=== PATIENT | female | born 1975 | race Caucasian/White ===

== ENCOUNTER 2021-10-26 21:37 | Emergency (ER) | payer OTHER, SELFPAY ==
[2021-10-26] VITALS (9 sets, daily range): BP systolic 169–179; BP diastolic 88–97; PULSE 78–82; RESP 14–18; TEMP 36.7; O2SAT 97–100; BMI 46.6
--- NOTE | 2021-10-26 21:55 | DI.RAD.S_ITS ---
PROCEDURE: XR CHEST 1V INDICATIONS: chest pain TECHNIQUE: One view of the chest was acquired. COMPARISON: None. FINDINGS: Surgical changes and devices: None. Lungs and pleura: There is mild pulmonary vascular prominence which may reflect vascular crowding or mild edema. No focal consolidation. No pleural effusions or pneumothorax. Mediastinum: Mediastinal contours appear prominent likely due to low lung volumes and portable technique. Heart size is borderline enlarged. Bones and chest wall: No suspicious bony lesions. Overlying soft tissues appear unremarkable. IMPRESSION: 1. Pulmonary vascular prominence compatible with vascular crowding or mild edema. Dictated by: Tyler Joyner M.D. on 10/26/2021 at 23:25 Approved by: Tyler Joyner M.D. on 10/26/2021 at 23:26
--- NOTE | 2021-10-26 21:57 | DI.RAD.S_ITS ---
PROCEDURE: XR SHOULDER LT MIN 2V INDICATIONS: Left arm pain TECHNIQUE: 3 views of the shoulder were acquired. COMPARISON: None. FINDINGS: Bones: No fractures or dislocations. There is minimal acromioclavicular joint degeneration. No suspicious bony lesions. Visualized ribs appear intact. Soft tissues: No suspicious soft tissue calcifications. IMPRESSION: 1. No fracture or dislocation. Dictated by: Tyler Joyner M.D. on 10/26/2021 at 23:26 Approved by: Tyler Joyner M.D. on 10/26/2021 at 23:27
--- NOTE | 2021-10-26 22:14 | PC.NURSE ---
In addition to 8/10 pain on right arm, pt also states she has been having headaches and had dizziness upon arrival to ED
[2021-10-26 22:22] LABS: Add Manual Diff / Slide Review NO; Basophils Absolute Auto 100 /uL (0-100); Basophils Percent Auto 0.8 % (0-2); Eosinophils Absolute Auto 100 /uL (0-450); Hematocrit 34.4 % (36-46); Hemoglobin 11.7 g/dL (12.0-16.0); Lymphocytes Absolute Auto 3600 /uL (1100-4500); Lymphocytes Percent Auto 35.8 % (25-40); Mean Corpuscular HGB Conc 34.1 % (30-36); Mean Corpuscular Hemoglobin 26.5 PG (26-34); Mean Corpuscular Volume 77.8 fL (80-100); Monocytes Absolute Auto 600 /uL (0-900); Neutrophils Absolute Auto 5600 /uL (1500-7000); Neutrophils Percent Auto 56.4 % (50-75); Platelet Count 334 X10^3/uL (150-400); Red Blood Cell Count 4.42 X10^6/uL (4.0-5.2); Red Cell Distribution Width 14.1 % (11.6-14.8); White Blood Cell Count 9.9 X10^3/uL (4.5-11.0)
[2021-10-26 22:33] LABS: Alanine Aminotransferase 22 IU/L (<35); Albumin 4.8 g/dL (3.5-5.0); Albumin Globulin Ratio 1.2 (1.0-2.8); Alkaline Phosphatase 114 U/L (38-126); Aspartate Aminotransferase 27 IU/L (14-36); BUN Creatinine Ratio 20.3 (6-22); Bilirubin Total 0.4 mg/dL (0.2-1.3); Blood Urea Nitrogen 13 mg/dL (7-17); Calcium 9.2 mg/dL (8.4-10.2); Carbon Dioxide 28 mmol/L (22-32); Chloride 101 mmol/L (98-107); Creatine Kinase 178 U/L (30-135); Estimated Glomerular Filt Rate > 60.0 mL/min (>60); Glucose 92 mg/dL (70-100); HEMOLYSIS < 15 (0-50); Lipase 112 U/L (23-300); Magnesium 1.9 mg/dL (1.6-2.3); Potassium 3.7 mmol/L (3.4-5.1); Sodium 139 mmol/L (137-145); Total Protein 8.8 g/dL (6.3-8.2)
[2021-10-26 22:44] LABS: Troponin I < 0.012 ng/mL (0.01-0.034)
[2021-10-26 22:47] LABS: CKMB % Relative Index 0.4 % (1.5-5.0); Creatine Kinase MB 0.78 ng/mL (<2.37)
--- NOTE | 2021-10-26 23:37 | ED_ITS ---
HPI - Extremity Injury (Upper) General Chief Complaint: Extremity Injury, Upper Stated Complaint: lt shoulder pain Time Seen by Provider: 10/26/21 23:19 Source: patient Mode of arrival: Ambulatory History of Present Illness HPI narrative: The patient complains of pain in left anterior shoulder, shooting down the left deltoid region with motion of the shoulder. Pain started last night. She is left-hand dominant. She does desk work. She cannot recall any distress, any type of injury to the left shoulder. She has no numbness in the left forearm or left hand. She has no restriction of motion left arm other than the shoulder. The right arm has no similar discomfort. She has no associated neck discomfort. She has no associated chest pain, palpitations, dizziness, dyspnea or weakness. Related Data Home Medications Medication Instructions Recorded Confirmed CA/FE/FOLIC ACID/VIT A/VIT B 1 tab PO Q DAY #0 05/28/12 (# VITAMIN) acetaminophen 500 mg tablet 500 mg PO Q6H PRN #0 05/28/12 (Tylenol Extra Strength) Previous Rx's Medication Instructions Recorded ibuprofen 600 mg tablet 600 mg PO QID #30 08/13/12 norethindrone (contraceptive) 0.35 0.35 mg PO QDAY #90 10/15/12 mg tablet (Ortho Micronor) Allergies Allergy/AdvReac Type Severity Reaction Status Date / Time CODEINE Allergy Mild HEADACHE Uncoded 11/01/17 12:22 OXYCODONE Allergy Mild Uncoded 11/01/17 12:22 PENICILLIN Allergy Mild Uncoded 11/01/17 12:22 Review of Systems Constitutional Constitutional: Denies body ache(s), Denies fatigue, Denies fever(s) and Denies headache(s) ENT Ears, Nose, Mouth, and Throat: Denies vertigo, Denies dizziness, Denies headache(s), Denies sinus pressure and Denies sore throat Cardiovascular Cardiovascular: Denies chest pain, Denies syncope, Denies rapid heart rate, Denies pedal edema and Denies dyspnea Respiratory Respiratory: Denies chest congestion, Denies cough and Denies dyspnea Gastrointestinal Gastrointestinal: Denies abdominal pain, Denies heartburn and Denies nausea Musculoskeletal Musculoskeletal: Reports as per HPI Integumentary/Breasts Skin/Breast: Denies new lesions and Denies rash Neurologic Neurologic: Denies vertigo, Denies dizziness, Denies syncope, Denies headache(s) and Denies localized weakness Psychiatric Psychiatric: Denies anxiety Endocrine Endocrine: Denies fatigue Hematologic/Lymphatic On Anticoagulants: No Patient History Medical History (Updated 10/27/21 @ 03:58 by Janusz Chicas MD) No chronic diseases present Social History Smoking Status: Never smoker Smoking Status: Never smoker alcohol intake frequency: 0-2 drinks per day Substance Use Type: does not use Exam Initial Vital Signs Initial Vital Signs: Vital Signs Pulse Rate 82 10/26/21 21:46 Pulse Oximetry 99 10/26/21 21:46 Const General: cooperative, healthy appearing, comfortable, well developed and well groomed HENOR Head: normal to inspection, normocephalic and atraumatic Eyes General: appearance normal, both eyes and all related structures Neck Neck: full ROM and No tender Chest Chest: normal inspection of the chest and tenderness (Left upper outer chest.) Resp Auscultation: clear to auscultation bilaterally Cardio Rate: regular rate Rhythm: regular rhythm Heart Sounds: S1 normal, S2 normal and no murmurs GI Palpation: No tender Back/Spine/Pelvis Other: No thoracic back pain. Skin General: no rashes or lesions noted Neuro General: patient alert, patient awake, patient oriented x3 and no focal motor deficits Extrem Other: Tenderness to the left anterior chest without deformity or laxity. Decreased internal rotation. No deltoid discomfort or laxity. Left arm is otherwise atraumatic. Pain is exacerbated by left arm motion. Left radial pulse is normal. Course Course Course Narrative: Evaluation is consistent with a left shoulder strain. There is no suggestive cardiac etiology of the left shoulder pain. She is discharged home on OTC analgesics. She should follow-up with her doctor and consider physical therapy if not improving. Orders Ordered: ED Orders 10/26/21 21:55 XR chest 1V Stat EKG-12 Lead Stat 10/26/21 21:57 XR shoulder LT min 2V Stat 10/26/21 22:10 Complete Blood Count AUTO DIFF Stat Comprehensive Metabolic Panel Stat Lipase Stat Magnesium Stat Troponin & CK Cardiac Panel Stat Discontinued Medications Ketorolac Tromethamine (Ketorolac 30 Mg/Ml Vial) 30 mg IV NOW ONE Stop: 10/26/21 23:42 Last Admin: 10/26/21 23:49 Dose: 30 mg Documented by: MELODY Vital Signs Vital signs: Vital Signs - 8 hr 10/26/21 21:46 10/26/21 21:47 10/26/21 21:51 Temperature 98.1 F Pulse Rate 82 80 82 Respiratory Rate 18 Blood Pressure 169/89 H 169/89 H Pulse Oximetry 99 99 99 10/26/21 22:08 10/26/21 22:30 10/26/21 23:00 Temperature Pulse Rate 78 80 80 Respiratory Rate 14 Blood Pressure Pulse Oximetry 97 100 10/26/21 23:07 10/26/21 23:30 10/26/21 23:31 Temperature Pulse Rate 82 82 81 Respiratory Rate 16 18 Blood Pressure 170/88 H 179/97 H Pulse Oximetry 97 97 97 10/27/21 00:00 10/27/21 00:01 10/27/21 00:03 Temperature Pulse Rate 81 82 80 Respiratory Rate 20 22 20 Blood Pressure 172/80 H Pulse Oximetry 99 99 99 MDM - Extremity Injury (Upper) Lab Data Result diagrams: 10/26/21 22:10 10/26/21 22:10 Labs: Lab Results 10/26/21 10/26/21 Range/Units 22:10 22:10 WBC 9.9 (4.5-11.0) X10^3/uL RBC 4.42 (4.0-5.2) X10^6/uL Hgb 11.7 L (12.0-16.0) g/dL Hct 34.4 L (36-46) % MCV 77.8 L (80-100) fL MCH 26.5 (26-34) PG MCHC 34.1 (30-36) % RDW 14.1 (11.6-14.8) % Plt Count 334 (150-400) X10^3/uL Neut % (Auto) 56.4 (50-75) % Lymph % (Auto) 35.8 (25-40) % [place] % (Auto) 6.0 (3-14) % Eos % (Auto) 1.0 L (2-4) % Baso % (Auto) 0.8 (0-2) % Neut # (Auto) 5600 (0352-1126) /uL Lymph # (Auto) 3600 (8988-5246) /uL [place] # (Auto) 600 (0-900) /uL Eos # (Auto) 100 (0-450) /uL Baso # (Auto) 100 (0-100) /uL Sodium 139 (137-145) mmol/L Potassium 3.7 (3.4-5.1) mmol/L Chloride 101 (98-107) mmol/L Carbon Dioxide 28 (22-32) mmol/L BUN 13 (7-17) mg/dL Creatinine 0.64 (0.52-1.04) mg/dL Estimated GFR > 60.0 (>60) mL/min BUN/Creatinine Ratio 20.3 (6-22) Glucose 92 (70-100) mg/dL Calcium 9.2 (8.4-10.2) mg/dL Magnesium 1.9 (1.6-2.3) mg/dL Total Bilirubin 0.4 (0.2-1.3) mg/dL AST 27 (14-36) IU/L ALT 22 (<35) IU/L Alkaline Phosphatase 114 (38-126) U/L Total Creatine Kinase 178 H (30-135) U/L CK-MB (CK-2) 0.78 (<2.37) ng/mL CK-MB (CK-2) Rel Index 0.4 L (1.5-5.0) % Troponin I < 0.012 (0.01-0.034) ng/mL Total Protein 8.8 H (6.3-8.2) g/dL Albumin 4.8 (3.5-5.0) g/dL Globulin 4.0 (1.7-4.1) g/dL Albumin/Globulin Ratio 1.2 (1.0-2.8) Lipase 112 (23-300) U/L Point of Care Testing Test Results Negative Imaging Data Left shoulder x-ray: Radiologist's Impression: Normal. No acute findings. Chest x-ray: Radiologist's Impression: ?Pulmonary vascular prominence compatible with vascular crowding or mild edema. ECG Data Attestation: I personally reviewed and interpreted this ECG as follows: (Normal sinus rhythm rate 75 beats per minute. Normal intervals. No ectopy. No acute ST T wave changes.) Discharge Plan Departure Patient Disposition: Home Clinical Impression: Left shoulder strain Activity Restrictions/Additional Instructions: The left shoulder x-ray is normal. Your cardiac evaluation is normal. The evaluation shows suggest strain to the soft tissue structures around the left shoulder. Advil 3 tablets every 6 hours for pain. Limit the use of your left arm. If her arm is not improved within 2-3 weeks, follow-up with your doctor for physical therapy. If symptoms persist, you may require an MRI to evaluate for a rotator cuff injury. Return here as needed. Prescriptions: No Action CA/FE/FOLIC ACID/VIT A/VIT B (# VITAMIN) 1 tab PO Q DAY Qty: 0 0RF acetaminophen [Tylenol Extra Strength] 500 MG tablet 500 mg PO Q6H PRNQty: 0 0RF ibuprofen 600 MG tablet 600 mg PO QID Qty: 30 1RF norethindrone (contraceptive) [Ortho Micronor] 0.35 MG tablet 0.35 mg PO QDAY Qty: 90 3RF
[2021-10-26] MEDS: KETOROLAC 30 MG/ML VIAL IV (23:49)
[2021-10-27] VITALS: PULSE 81; RESP 20; O2SAT 99
[2021-10-27 00:01] VITALS: PULSE 82; RESP 22; O2SAT 99
[2021-10-27 00:03] VITALS: BP 172/80; PULSE 80; RESP 20; O2SAT 99
== END 2021-10-27 00:40 | disposition home or self-care (01) ==
PROVIDERS: Emergency Provider Emergency Medicine
DX: S46.912A Strain of unspecified muscle, fascia and tendon at shoulder and upper arm level, left arm, initial encounter (principal); R07.9 Chest pain, unspecified; X58.XXXA Exposure to other specified factors, initial encounter
CPT/HCPCS: 36415; 71045; 73030; 80053; 81025; 82550; 82553; 83690; 83735; 84484; 85025; 93005; 93010; 96374; 99284; J1885

== ENCOUNTER → 2023-07-18 16:17 | Outpatient (CLI) | payer OTHER, SELFPAY ==
[2023-07-18 17:23] LABS: Add Manual Diff / Slide Review NO; Basophils Absolute Auto 0 /uL (0-100); Basophils Percent Auto 0.2 % (0-2); Eosinophils Absolute Auto 200 /uL (0-450); Eosinophils Percent Auto 2.1 % (2-4); Hematocrit 31.9 % (36-46); Hemoglobin 10.4 g/dL (12.0-16.0); Lymphocytes Absolute Auto 3400 /uL (1100-4500); Lymphocytes Percent Auto 37.2 % (25-40); Mean Corpuscular HGB Conc 32.8 % (30-36); Mean Corpuscular Hemoglobin 22.9 PG (26-34); Mean Corpuscular Volume 69.9 fL (80-100); Monocytes Absolute Auto 600 /uL (0-900); Monocytes Percent Auto 6.5 % (3-14); Neutrophils Absolute Auto 4900 /uL (1500-7000); Platelet Count 452 X10^3/uL (150-400); Red Blood Cell Count 4.56 X10^6/uL (4.0-5.2); Red Cell Distribution Width 16.7 % (11.6-14.8)
[2023-07-18 17:26] LABS: HEMOLYSIS < 15 (0-50)
[2023-07-18 17:28] LABS: Iron 35 ug/dL (37-170)
[2023-07-18 17:39] LABS: Anisocytosis 1+; Microcytosis 1+; Polychromasia 1+
[2023-07-18 18:54] LABS: Ferritin 6 ng/mL (6-137)
[2023-07-18 19:55] LABS: Percent Iron Saturation 8 % (15-50); Total Iron Binding Capacity 435 ug/dL (265-497); Transferrin 377 mg/dL (206-381)
== END ==
PROVIDERS: Referring Provider Nurse Practitioner Family; Visit Provider Nurse Practitioner Family
DX: D64.9 Anemia, unspecified (principal)
CPT/HCPCS: 36415; 82728; 83540; 83550; 85025

== ENCOUNTER 2024-05-22 06:57 | Emergency (ER) | payer OTHER, SELFPAY ==
[2024-05-22 07:20] VITALS: BP 210/114; PULSE 81; RESP 16; TEMP 36.6; O2SAT 97; BMI 46.2
--- NOTE | 2024-05-22 07:46 | ED.HA ---
HPI - Headache General Chief Complaint: Headache Stated Complaint: headache Time Seen by Provider: 05/22/24 07:06 Source: patient, RN notes reviewed and old records reviewed Mode of arrival: Ambulatory Limitations: no limitations History of Present Illness HPI Narrative: 48-year-old female with history of migraines and cluster headaches. Patient reports headaches do sometimes resolve but for the past 22 days. She has been referred to headache clinic. patient has been taking sumatriptan for the last 18 days and has since run out. States was taking it fairly regularly, she has been following with the primary care who has been consulting with Neurology. They did recently give her an additional medication but did not feel comfortable increasing that amount until she sees the headache clinic. Headache feels like her typical pass headaches with pressure behind her right eye. She states no fevers or chills, no vision changes, no numbness, tingling or weakness no other neurologic changes. Denies any nausea or vomiting. No fevers or chills. No recent respiratory infections. No chest pain or shortness of breath. Denies any diarrhea, constipation or urinary symptoms. States she does sometimes get migraines with the RN nausea but has not been having that. Patient has had imaging of her head in the past and workup for her headaches. Patient is supposed to be on antihypertensives but had reaction supposed to be starting a new medication today. She was picking up her new prescription today. She has had Toradol in the past with minimal improvement, she states Reglan has been helpful but she does get a little bit of a dystonic reaction. She states she has had p.o. Reglan which has not had similar symptoms in the past. She states narcotics she does not tolerate well. Patient requests if she can have 1 dose of sumatriptan she normally has 100 mg. She works with her physician and states she will be seeing them today. Related Data Home Medications Medication Instructions Recorded Confirmed CA/FE/FOLIC ACID/VIT A/VIT B 1 tab PO Q DAY ##0 05/28/12 (# VITAMIN) acetaminophen 500 mg tablet 500 mg PO Q6H PRN ##0 05/28/12 (Tylenol Extra Strength) Previous Rx's Medication Instructions Recorded ibuprofen 600 mg tablet 600 mg PO QID ##30 08/13/12 norethindrone (contraceptive) 0.35 0.35 mg PO QDAY ##90 03/25/13 mg tablet (Ortho Micronor) metoclopramide HCl 10 mg tablet 10 mg PO Q6H PRN nausea and 05/22/24 (Reglan) vomiting #10 tabs Allergies Allergy/AdvReac Type Severity Reaction Status Date / Time morphine Allergy Anaphylaxis Verified 05/22/24 07:23 CODEINE Allergy Mild HEADACHE Uncoded 05/22/24 07:23 OXYCODONE Allergy Mild Uncoded 05/22/24 07:23 PENICILLIN Allergy Mild Uncoded 05/22/24 07:23 Review of Systems Review of Systems ROS Unobtainable: All systems reviewed & are unremarkable except as noted in HPI and below Patient History Medical History No chronic diseases present Social History Smoking Status: Never smoker Smoking Status: Never smoker alcohol intake frequency: 0-2 drinks per day Substance Use Type: does not use Exam Narrative Exam Narrative: GENERAL: Alert and oriented x three, well-appearing female in mild distress HEENT: Head normocephalic, atraumatic, EOMI, pupils reactive, face symmetric, moist mucous membranes, no facial droop NECK: Supple, full range of motion CARDIOVASCULAR: Regular rate and rhythm without murmurs, rubs or gallops. RESPIRATORY: Breath sounds equal bilaterally, no wheezes rales or rhonchi. ABDOMEN: Soft, nontender. Normoactive bowel sounds all 4 quadrants. No guarding or rebound, rigidity, no mass : No CVA tenderness EXTREMITIES: Normal range of motion, no clubbing or edema. Neurovascularly intact NEUROLOGICAL: Cranial nerves II through XII grossly intact. Moving all extremities. Normal gait. SKIN: Warm, dry, no petechiae, no rashes or lesions. Initial Vital Signs Initial Vital Signs: Vital Signs Temperature 97.8 F 05/22/24 07:20 Pulse Rate 81 05/22/24 07:20 Respiratory Rate 16 05/22/24 07:20 Blood Pressure 210/114 H 05/22/24 07:20 Pulse Oximetry 97 05/22/24 07:20 Oxygen Delivery Method Room Air 05/22/24 07:20 Course Orders Ordered: Discontinued Medications Sumatriptan Succinate (Sumatriptan 25 Mg Tablet) 100 mg PO NOW ONE Stop: 05/22/24 08:58 Last Admin: 05/22/24 09:09 Dose: 100 mg Documented By: [facility] Vital Signs Vital signs: Vital Signs - 8 hr 05/22/24 07:20 05/22/24 07:57 05/22/24 07:58 Temperature 97.8 F Pulse Rate 81 76 75 Respiratory Rate 16 Blood Pressure 210/114 H Pulse Oximetry 97 100 98 Oxygen Delivery Method Room Air 05/22/24 07:58 05/22/24 08:00 05/22/24 08:00 Temperature Pulse Rate 74 Respiratory Rate Blood Pressure 174/94 H 169/91 H Pulse Oximetry 98 Oxygen Delivery Method MDM - Headache MDM Narrative Medical decision making narrative: Patient was hypertensive initially upon arrival, improving without intervention here in the department. Patient describes persistent headaches has had head CT in the past and evaluation is following regularly with her physician who has also been working with Neurology and has been referred to the headache clinic. No other red flag symptoms today. Patient given dose of sumatriptan here in the department. Patient notes she does not tolerate IV regularly unwell with dystonic reaction but has had oral Reglan seemed to tolerate it and found it helpful for headaches in the past. We will give a short term prescription for this medication. Discussed return precautions all questions answered. Discharge Plan Departure Patient Disposition: Home Clinical Impression: Headache Activity Restrictions/Additional Instructions: I hope you are follow up with headache clinic is helpful. Prescription for Reglan is included, you can take 1 tablet every 6 hours as needed. Prescription was sent to [facility]. Please return for rapidly worsening headaches, any sudden vision changes, new numbness, tingling or weakness, difficulty with movement, persistent vomiting, new chest pain or shortness of breath or other new or concerning changes. Prescriptions: New metoclopramide HCl [Reglan] 10 mg tablet 10 mg PO Q6H PRN (Reason: nausea and vomiting) Qty: 10 0RF No Action CA/FE/FOLIC ACID/VIT A/VIT B (# VITAMIN) 1 tab PO Q DAY Qty: 0 acetaminophen [Tylenol Extra Strength] 500 MG tablet 500 mg PO Q6H PRNQty: 0 ibuprofen 600 MG tablet 600 mg PO QID Qty: 30 1RF norethindrone (contraceptive) [Ortho Micronor] 0.35 MG tablet 0.35 mg PO QDAY Qty: 90 3RF Stand Alone Forms: Patient Portal/API/Survey
[2024-05-22 07:57] VITALS: PULSE 76; O2SAT 100
[2024-05-22 07:58] VITALS: BP 174/94; PULSE 75; O2SAT 98
[2024-05-22 08:00] VITALS: BP 169/91; PULSE 74; O2SAT 98
[2024-05-22 08:30] VITALS: BP 169/95; PULSE 73; O2SAT 99
[2024-05-22 09:00] VITALS: BP 170/98; PULSE 75; O2SAT 98
[2024-05-22] MEDS: SUMAtriptan 25 MG TABLET 100 MG PO (09:09)
== END 2024-05-22 09:16 | disposition home or self-care (01) ==
PROVIDERS: Emergency Provider Emergency Medicine
DX: R51.9 Headache, unspecified (principal)
CPT/HCPCS: 99283

== ENCOUNTER 2025-04-08 19:14 | Emergency (ER) | payer OTHER, SELFPAY ==
[2025-04-08 19:42] VITALS: BP 183/91; PULSE 84; RESP 16; TEMP 36.4; O2SAT 97; BMI 46.6
== END 2025-04-08 21:13 | disposition left against medical advice (07) ==
PROVIDERS: Emergency Provider Emergency Medicine
DX: Z53.21 Procedure and treatment not carried out due to patient leaving prior to being seen by health care provider (principal)
CPT/HCPCS: 99281

== ENCOUNTER → 2025-06-25 08:49 | Outpatient (CLI) | payer OTHER, SELFPAY ==
--- NOTE | 2025-06-25 | DI.RAD.S_ITS ---
PROCEDURE: XR KNEE RT 3V INDICATIONS: Bilateral knee pain TECHNIQUE: 3 views of the knee were acquired. COMPARISON: None. FINDINGS: Bones: No fractures or dislocations. No suspicious bony lesions. Mild medial compartment predominant degenerative arthrosis. Soft tissues: No joint effusion. No suspicious soft tissue calcifications. Surgical clips along the distal medial thigh and proximal lower leg. IMPRESSION: No acute bony abnormality or significant effusion. Dictated by: Sebastian Ramirez M.D. on 06/25/2025 at 10:37 Approved by: Sebastian Ramirez M.D. on 06/25/2025 at 10:41
--- NOTE | 2025-06-25 | DI.RAD.S_ITS ---
PROCEDURE: XR KNEE LT 3V INDICATIONS: Bilateral knee pain TECHNIQUE: 3 views of the knee were acquired. COMPARISON: None. FINDINGS: Bones: No fractures or dislocations. No suspicious bony lesions. Mild tricompartmental degenerative arthrosis on nonweightbearing view. Soft tissues: No joint effusion. No suspicious soft tissue calcifications. IMPRESSION: No acute bony abnormality or significant effusion. Dictated by: Sebastian Ramirez M.D. on 06/25/2025 at 10:41 Approved by: Sebastian Ramirez M.D. on 06/25/2025 at 10:49
== END ==
PROVIDERS: PCP Nurse Practitioner Family; Referring Provider Nurse Practitioner Family; Visit Provider Nurse Practitioner Family
DX: M25.561 Pain in right knee (principal); M25.562 Pain in left knee
CPT/HCPCS: 73562